=== PATIENT | female | born 1985 | race Hispanic/Latino ===

== ENCOUNTER 2018-07-04 19:19 | Emergency (ER) | payer BC ==
[2018-07-04 19:27] VITALS: BP 131/73; PULSE 74; RESP 17; TEMP 98.4; O2SAT 100
[2018-07-04] MEDS ORDERED: Silver Sulfadiazine 1% Cream (20 gm) TOP STA (19:41)
[2018-07-04] MEDS ORDERED: Silver Sulfadiazine 1% CREAM (50 gm) ONE (19:44)
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
== END 2018-07-04 20:00 | disposition home or self-care (01) ==
LOC: H.ER 19:19
DX: T65.91XA Toxic effect of unspecified substance, accidental (unintentional), initial encounter (principal)